=== PATIENT | female | born 1950 | race Caucasian/White ===

== ENCOUNTER → 2020-04-30 | Outpatient (CLI) | payer OTHER ==
[~2020-04-30] MED LIST: ALBUTEROL2.5 MG/31 INH; AMIODARONE HCL400 MG PO; ASA81BEC PO; CARDIZEM SR 60M60 MG PO; CEFDINIR300 MG PO; COREG6.25 MG PO; DILTIAZEM ER120 MG PO; ELIQUIS5 MG PO; ERYTHROMYCIN; FLAGYL500 MG PO; FLECAINIDE ACET50 M1 PO; HYDROCHLOROTHIA25 M1 PO; LIPITOR 20 MG T20 M1 PO; LIPITOR20 MG PO; LISINOPRIL10 MG PO; MEDROLDOSEPACK PO; MYERBETRIQ; NORCO 5-325 TA1 EACH PO; OSELB75 PO; OXYCODONE HCL 55 MG PO; PACERONE 200 M200 M1 PO; PREDNISONE 20 M20 MG PO; PREVACID PO; PROAIR HFA8.5 GM INH; PROAIR HFA8.5 GM PO; PROMETHAZINE D480 ML PO; PROZAC20 MG PO; TOPAMAX50 MG PO; TRAMADOL 50 MG50 MG PO; VICODIN HP 10-1 EAC1 PO; XARELTO20 MG PO; ZPAK PO
== END ==
LOC: CAT 13:24
PROVIDERS: ATTEND Pediatrics
DX: Z12.2 Encounter for screening for malignant neoplasm of respiratory organs (principal); I25.10 Atherosclerotic heart disease of native coronary artery without angina pectoris; J84.10 Pulmonary fibrosis, unspecified; J98.4 Other disorders of lung; Z87.891 Personal history of nicotine dependence; Z95.2 Presence of prosthetic heart valve

== ENCOUNTER → 2021-04-09 | Outpatient (CLI) | payer OTHER ==
[~2021-04-09] MED LIST changes: +BROVANA15 MCG/2 M INH; +CLOBETASOL PRO0.5 GM; +COZAAR 25 MG TA25 M1 PO; +FLECAINIDE ACET50 M2 PO; +LEXAPRO20 MG PO; +NITROSTAT0.4 M1 DISSOLVE; +POTASSIUM20 PO; +PULMICORT0.5 MG/2 M; +WELLBUTRIN SR150 MG PO
== END ==
LOC: SJCVC 14:27
PROVIDERS: ATTEND Internal Medicine Cardiovascular Disease
DX: R94.31 Abnormal electrocardiogram [ECG] [EKG] (principal); I48.19 Other persistent atrial fibrillation; I48.3 Typical atrial flutter; J43.9 Emphysema, unspecified; I10 Essential (primary) hypertension; G47.33 Obstructive sleep apnea (adult) (pediatric); E66.01 Morbid (severe) obesity due to excess calories; E78.5 Hyperlipidemia, unspecified; Z88.0 Allergy status to penicillin; Z79.899 Other long term (current) drug therapy; Z87.891 Personal history of nicotine dependence; Z82.49 Family history of ischemic heart disease and other diseases of the circulatory system

== ENCOUNTER → 2021-05-09 | Outpatient (CLI) | payer OTHER ==
[2021-05-09 10:25] LABS: ABSOLUTE NEUTROPHILS 4.8 thou/uL (1.4-8.2); BASOPHILS 0.8 % (0.0-2.0); EOSINOPHILS 5.5 % (0.0-3.0); HEMATOCRIT 39.7 % (37.0-47.0); HEMOGLOBIN 13.5 gm/dL (12.0-15.0); LYMPHOCYTES 16.9 % (24.0-44.0); MCH 31.3 pg (26.0-34.0); MCHC 34.1 g/dL (28.0-37.0); MCV 91.8 fL (80.0-100.0); MONOCYTES 8.4 % (1.0-8.0); PLATELET COUNT 268 thou/uL (150-400); POLYS 68.4 % (36.0-66.0); RBC 4.33 mil/uL (4.20-5.00); RDW 13.2 % (10.5-14.5)
[2021-05-09 10:43] LABS: ALBUMIN 3.5 g/dL (3.4-5.0); CREATININE 1.4 mg/dL (0.6-1.0); POTASSIUM 3.9 mmol/L (3.5-5.1); TOTAL BILIRUBIN 0.4 mg/dL (0.2-1.0)
== END ==
LOC: CAT 09:06
PROVIDERS: ATTEND Internal Medicine Cardiovascular Disease
DX: I25.10 Atherosclerotic heart disease of native coronary artery without angina pectoris (principal); J84.10 Pulmonary fibrosis, unspecified; I48.91 Unspecified atrial fibrillation; M47.814 Spondylosis without myelopathy or radiculopathy, thoracic region

== ENCOUNTER 2021-05-12 06:26 | Observation (INO) | payer OTHER ==
[~2021-05-12] VITALS: Ht 160 cm; Wt 108.9 kg
[2021-05-12 07:23] VITALS: BP 112/61
[2021-05-12] MEDS ORDERED: TOPROL XL50 MG PO (07:54)
[2021-05-12] MEDS ORDERED: XANAX 0.5 MG0.5 M1 PO (07:56)
[2021-05-12 08:03] LABS: ABSOLUTE NEUTROPHILS 4.3 thou/uL (1.4-8.2); BASOPHILS 0.6 % (0.0-2.0); EOSINOPHILS 6.1 % (0.0-3.0); HEMATOCRIT 37.6 % (37.0-47.0); HEMOGLOBIN 12.8 gm/dL (12.0-15.0); LYMPHOCYTES 17.2 % (24.0-44.0); MCH 31.2 pg (26.0-34.0); MCV 91.8 fL (80.0-100.0); MONOCYTES 9.5 % (1.0-8.0); PLATELET COUNT 256 thou/uL (150-400); POLYS 66.6 % (36.0-66.0); RBC 4.09 mil/uL (4.20-5.00); RDW 13.4 % (10.5-14.5); WBC 6.5 thou/uL (4.0-11.0)
[2021-05-12 08:14] LABS: CALCIUM 8.8 mg/dL (8.5-10.1); CREATININE 1.3 mg/dL (0.6-1.0)
[2021-05-12 08:20] LABS: ALBUMIN 3.4 g/dL (3.4-5.0); TOTAL BILIRUBIN 0.4 mg/dL (0.2-1.0); TOTAL PROTEIN 6.8 g/dL (6.4-8.2)
[2021-05-12 08:36] LABS: APTT 27.6 Seconds (24.5-32.8); INR 0.99; PROTIME 10.8 Seconds (10.5-12.1)
[2021-05-12 16:34] VITALS: BP 116/60
--- NOTE | 2021-05-12 20:31 | NUR ---
RECEIVED PT FROM CLINICAL EDITOR. PT IS AXOX4, PLEASANT; VSS, AFEBRILE, SR ON MONITOR. R GROIN SITE C/D/I, NO HEMATOMA. PT DENIES PAIN, ALTHOUGH HAS SOA ON EXERTION. ADMISSION COMPLETED, RT CONSULTED FOR PT AT HOME BIPAP. POC IS TO CONTINUE TO ASSESS PT GROIN SITE; STDBY ASST TO TOILET. POSS D/C IN AM. FALL PRECAUTIONS IN PLACE. NO CONCERNS AT THIS TIME.
[2021-05-13] VITALS (7 sets, daily range): BP systolic 129–141; BP diastolic 70–82
[2021-05-13] MEDS ORDERED: TAMBOCOR 100 M100 M1 PO (08:47)
--- NOTE | 2021-05-26 15:45 | P ---
[facility] [place] [address] PROCEDURE REPORT Name: JABIER LOBATO Room #: 216-P [facility] Danielle M.RNayla#: [id number] Admission: 05/12/21 Attend Phys: Anthony Clifton MD Discharge: 05/13/21 Date of : 50 Report #: [id number] THIS REPORT FOR: cc: Marvin Rasmussen MD, Thomas MD Couchonnal,Anthony Ortiz MD ~ DATE OF SERVICE: 05/12/2021 PREOPERATIVE DIAGNOSIS: Atrial fibrillation. POSTOPERATIVE DIAGNOSIS: Atrial fibrillation. HISTORY: The patient is a 71-year-old with history of AFib, here for ablation. PROCEDURES PERFORMED: 1. AFib ablation, CPT code 87264. 2. 3D mapping, CPT code 39170. 3. Intracardiac echo, CPT code 69565. 4. Focal ablation, CPT code 95683. 5. Second pathway ablation, CPT code 55407. DESCRIPTION OF PROCEDURE: The patient was brought to the EP laboratory in a fasting and sedated state, prepped and draped in sterile fashion. I obtained access to the right femoral vein x 3, placing an 8, 9 and 7-Niuean short sheath using modified Seldinger technique. Next, under fluoroscopy, a decapolar catheter was placed in the coronary sinus, ICE catheter was placed in the right atrium. There was evidence of 2 left and 2 right pulmonary veins. This was merged with the cardiac CT scan. The patient was systemically heparinized and a transseptal was performed using an SL1 sheath and Gordon needle, which was straightforward and then I exchanged for the cryo sheath and created a 3D geometry of the left atrium using the Lasso catheter. Next, the pulmonary veins were isolated. The left superior pulmonary vein underwent two 4-minute freezes and isolated during the second freeze at 70 seconds. The left inferior pulmonary vein underwent two 4-minute freezes and isolated at 40 seconds during the second freeze. The right superior pulmonary vein underwent a 3-minute freeze isolating at 37 seconds and the right inferior pulmonary vein underwent 130 seconds followed by a 4-minute freeze. During the second freeze, the vein isolated at 51 seconds. Next, I decided to perform a posterior roofline. I performed a total of 5 freezes along the roof each of 3 minutes duration and esophageal temperatures were closely monitored. They were within normal limits. As such, the patient was cardioverted. Repeat voltage map was created showing that all veins were now isolated. For her atrial flutter, we proceeded with atrial flutter ablation. Ablation was performed using an 8 mm and RAMP sheath. Preablation, the transisthmus conduction time was 60 milliseconds. Post-ablation, it was [address] [address] PROCEDURE REPORT Name: JABIER LOABTO FAITHERIN Room #: 216-P [facility] M.R.#: [id number] Admission: 05/12/21 Attend Phys: Anthony Clifton MD Discharge: 05/13/21 Date of : 50 Report #: [id number] with evidence of bidirectional block. As such, the procedure was concluded. CONCLUSIONS: 1. Successful AFib ablation and isolation of pulmonary veins. 2. Successful posterior roofline isolation. 3. Successful atrial flutter ablation with bidirectional block. <ELECTRONICALLY SIGNED> By: Anthony Clifton MD 05/26/21 1545 1114 2319 Anthony Clifton MD /nt
== END 2021-05-13 15:20 | disposition home or self-care (01) ==
LOC: CATH → 2N 15:56
PROVIDERS: ADMIT Internal Medicine Cardiovascular Disease; ATTEND Internal Medicine Cardiovascular Disease
DX: I48.91 Unspecified atrial fibrillation (principal); I48.92 Unspecified atrial flutter; E78.5 Hyperlipidemia, unspecified; I10 Essential (primary) hypertension; G47.33 Obstructive sleep apnea (adult) (pediatric); Z79.899 Other long term (current) drug therapy; Z88.0 Allergy status to penicillin; Z91.048 Other nonmedicinal substance allergy status
CPT/HCPCS: 62110; 62900; 65020; 70005

== ENCOUNTER → 2021-05-16 | Outpatient (CLI) | payer OTHER ==
[~2021-05-16] MED LIST changes: +TAMBOCOR 100 M100 M1 PO; +TOPROL XL50 MG PO; +XANAX 0.5 MG0.5 M1 PO
== END ==
LOC: SJCVCIMAG 07:36
PROVIDERS: ATTEND Internal Medicine Cardiovascular Disease
DX: I34.0 Nonrheumatic mitral (valve) insufficiency (principal); R94.31 Abnormal electrocardiogram [ECG] [EKG]; I11.9 Hypertensive heart disease without heart failure; I48.0 Paroxysmal atrial fibrillation; I10 Essential (primary) hypertension; E78.5 Hyperlipidemia, unspecified; G47.33 Obstructive sleep apnea (adult) (pediatric); E66.9 Obesity, unspecified; F17.290 Nicotine dependence, other tobacco product, uncomplicated; Z88.0 Allergy status to penicillin; Z79.899 Other long term (current) drug therapy; Z82.49 Family history of ischemic heart disease and other diseases of the circulatory system

== ENCOUNTER 2021-05-27 09:30 | Emergency (ER) | payer OTHER ==
[~2021-05-27] VITALS: Ht 162.6 cm; Wt 111.1 kg
[2021-05-27 10:28] LABS: ABSOLUTE NEUTROPHILS 5.9 thou/uL (1.4-8.2); BASOPHILS 0.4 % (0.0-2.0); EOSINOPHILS 4.1 % (0.0-3.0); HEMATOCRIT 35.9 % (37.0-47.0); HEMOGLOBIN 11.8 gm/dL (12.0-15.0); MCH 30.7 pg (26.0-34.0); MCHC 32.9 g/dL (28.0-37.0); MCV 93.3 fL (80.0-100.0); MONOCYTES 8.1 % (1.0-8.0); PLATELET COUNT 260 thou/uL (150-400); POLYS 75.4 % (36.0-66.0); RBC 3.85 mil/uL (4.20-5.00); RDW 13.4 % (10.5-14.5); WBC 7.9 thou/uL (4.0-11.0)
[2021-05-27 10:34] LABS: ANION GAP 5 mmol/L (7-16); BUN 24 mg/dL (7-18); CALCIUM 8.7 mg/dL (8.5-10.1); CHLORIDE 105 mmol/L (98-107); CO2 31 mmol/L (21-32); CREATININE 1.3 mg/dL (0.6-1.0); GLUCOSE 139 mg/dL (74-106); POTASSIUM 3.8 mmol/L (3.5-5.1); SODIUM 141 mmol/L (136-145)
--- NOTE | 2021-05-27 10:40 | EKG ---
[address] [address] ELECTROCARDIOGRAM REPORT Name: JABIER LOBATO [id number] Admission: 05/27/21 Attend Phys: Discharge: Date of : 50 Report #: [id number] [facility] ED Test Date: 2021-05-27 Test Time: 09:34:09 Pat Name: JABIER LOBATO Department: Room: Gender: F Category Analyst: : 1950 Requested By: Edmundo Urban Order Number: [id number] MD: Caden Vines Measurements Intervals [place] Rate: 55 P: 82 CT: 217 QRS: 89 QRSD: 114 T: 53 QT: 477 QTc: 457 Interpretive Statements Sinus rhythm Borderline prolonged CT interval Borderline intraventricular conduction delay No previous ECG available for comparison Electronically Signed On 05-27-2021 10:40:03 CDT by Caden Vines [email or web address] <ELECTRONICALLY SIGNED> By: Caden Vines MD, [facility] 05/27/21 1040 0934 0934 Caden Vines MD, FACC /EPI
[2021-05-27 10:44] LABS: ALBUMIN 3.4 g/dL (3.4-5.0); MAGNESIUM 2.2 mg/dL (1.8-2.4); SGOT 16 U/L (15-37); SGPT 24 U/L (30-65); TOTAL BILIRUBIN 0.4 mg/dL (0.2-1.0); TOTAL PROTEIN 6.4 g/dL (6.4-8.2); TROPONIN-I <0.06 ng/mL (<0.06)
[2021-05-27 12:17] VITALS: BP 139/37
== END 2021-05-27 12:18 | disposition home or self-care (01) ==
LOC: ER 09:30
PROVIDERS: Emergency Medicine
DX: R06.09 Other forms of dyspnea (principal); Z20.822 Contact with and (suspected) exposure to COVID-19; I10 Essential (primary) hypertension; I48.91 Unspecified atrial fibrillation; Z98.890 Other specified postprocedural states; Z79.899 Other long term (current) drug therapy; Z79.51 Long term (current) use of inhaled steroids; Z88.0 Allergy status to penicillin; Z91.09 Other allergy status, other than to drugs and biological substances; Z87.891 Personal history of nicotine dependence